=== PATIENT | female | born 1985 | race African-American/Black ===

== ENCOUNTER 2016-11-18 14:28 | Emergency (ER) | payer BC, OTHER ==
[2016-11-18] MEDS ORDERED: ONDANSETRON 4 MG/2 ML VIAL IVP STA (14:44)
[2016-11-18] MEDS ORDERED: SODIUM CHLORIDE 0.9% 1,000 ML IV ONE (14:44)
[2016-11-18] MEDS ORDERED: DICYCLOMINE 10 MG/ML 2 ML AMP IM STA (14:44)
[2016-11-18] MEDS ORDERED: SODIUM CHLORIDE 0.9% 1,000 ML IV SCH (14:45)
[2016-11-18] MEDS ORDERED: KETOROLAC 30 MG/ML 1 ML VIAL IVP STA (14:51)
[2016-11-18 15:12] LABS: Basophils # (A) 0.1 k/uL (0-0.2); Basophils % (A) 1 %; CH 29.7; CHCM 34.3; Eosinophils # (A) 0.1 k/uL (0-0.7); Eosinophils % (A) 3 %; HCT 39.6 % (34.0-46.0); HDW 2.47; Luc # (Auto) 0.09; Luc % (Auto) 2; Lymphocytes # (A) 0.6 k/uL (1.0-4.8); Lymphocytes % (A) 13 %; MCH 30.7 pg (25.0-35.0); MCHC 35.3 g/dL (31.0-37.0); Mean Platelet Volume 6.9; Monocytes # (A) 0.3 k/uL (0-1.0); Monocytes % (A) 7 %; Neutrophils # (A) 3.2 k/uL (1.3-7.7); Neutrophils % (A) 74 %; RBC 4.55 m/uL (3.80-5.40); RDW 13.6 % (11.5-15.5); WBC 4.4 k/uL (3.8-10.6); WBC (Perox) 4.07
[2016-11-18 15:21] LABS: ALT 16 U/L (9-52); AST 21 U/L (14-36); Alkaline Phosphatase 87 U/L (38-126); Anion Gap 12 mmol/L; Blood Urea Nitrogen 8 mg/dL (7-17); Calcium 9.5 mg/dL (8.4-10.2); Carbon Dioxide 22 mmol/L (22-30); Chloride 107 mmol/L (98-107); Glucose 97 mg/dL (74-99); Non-African American GFR(MDRD) >60 (>60 ml/min/1.73 sqM); Potassium 4.4 mmol/L (3.5-5.1); Sodium 141 mmol/L (137-145); Total Protein 8.3 g/dL (6.3-8.2)
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
[2016-11-18] MEDS ORDERED: ACETAMINOPHEN TAB 500 MG TAB PO STA (16:14)
[2016-11-18 16:23] LABS: Appearance,Urine Clear (Clear); Bilirubin,Urine Negative (Negative); Glucose,Urine (UA) Negative (Negative); Ketones,Urine Negative (Negative); Leukocyte Esterase,Urine Negative (Negative); Nitrite,Urine Negative (Negative); PH, Urine 6.5 (5.0-8.0); Protein,Urine Negative (Negative); Specific Gravity,Urine 1.015 (1.001-1.035); UA Billing (MACRO vs. MICRO) CHEM; Urobilinogen,Urine <2.0 mg/dL (<2.0)
--- NOTE | 2016-11-18 16:40 | XR ---
EXAMINATION TYPE: XR chest 1V portable DATE OF EXAM: 11/18/2016 4:34 PM COMPARISON: Chest x-ray December 10, 2014. HISTORY: Chest pain per order. Cough per patient. TECHNIQUE: Single AP portable frontal upright view of the chest is obtained. FINDINGS: There is no focal air space opacity, pleural effusion, or pneumothorax seen. The cardiac silhouette size is within normal limits. The osseous structures are intact. IMPRESSION: No acute process. No significant change from prior.
[2016-11-18 17:05] VITALS: BP 154/72; PULSE 68; RESP 18; TEMP 96.9
[2016-11-18] MEDS ORDERED: KETOROLAC 30 MG/ML 1 ML VIAL IVP SCH (22:00)
== END 2016-11-18 17:08 | disposition home or self-care (01) ==
LOC: EC 14:28
DX: B34.9 Viral infection, unspecified (principal); E86.0 Dehydration; F17.200 Nicotine dependence, unspecified, uncomplicated; Z88.2 Allergy status to sulfonamides
CPT/HCPCS: 99284; 96374; 96375; 96372; 96361 ×2; 36415; 80053; 85025; 81003; 81025; 87502; 71010; J0500; J2405; J1885

== ENCOUNTER 2016-12-21 08:19 | Day surgery (SDC) | payer OTHER ==
[2016-12-16 14:11] VITALS: BMI 31.1
[~2016-12-21 08:19] MED LIST: DEXAMETHASONE SOD PHOSPHATE 10 MG/ML 1 ML VIAL IV ONE; HEPARIN SODIUM,PORCINE 5,000 UNIT/ML 1 ML VIAL SQ ONE; HYDROmorphone 1 MG/ML 1 ML SYRINGE IVP PRN; LACTATED RINGERS 1,000 ML IV SCH; MIDAZOLAM 2 MG/2 ML VIAL IV PRN; ONDANSETRON 4 MG/2 ML VIAL IVP ONE; Pre Op ABX Message 1 EACH MISC MISCELLANE ONE
[2016-12-21] MEDS ORDERED: LIDOCAINE 1% 20 ML VIAL (10MG/ML) FOR IV START INTRADERMA ONE (08:51)
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
[2016-12-21] MEDS ORDERED: MIDAZOLAM 2 MG/2 ML VIAL ONE (09:32)
[2016-12-21] MEDS ORDERED: fentaNYL (PF) 50 MCG/ML 2 ML AMP ONE (09:32)
[2016-12-21] MEDS ORDERED: LIDOCAINE 1% INJ 10MG/ML (20 ML MDV) ONE (09:32)
[2016-12-21] MEDS ORDERED: HYDROmorphone (PF) 1 MG/ML ONE (09:32)
[2016-12-21] MEDS ORDERED: PROPOFOL 10 MG/ML 20 ML VIAL IV ONE (09:32)
[2016-12-21] MEDS ORDERED: KETAMINE 10 MG/ML 20 ML VIAL ONE (09:32)
[2016-12-21] MEDS ORDERED: BUPIVACAIN-EPI 0.25%-1:200,000 30 ML VIAL SQ ONE ×2 (09:33→10:29)
--- NOTE | 2016-12-21 10:41 | P.OP ---
Date of Procedure: 12/21/16 Preoperative Diagnosis: Left axillary hidradenitis Postoperative Diagnosis: Left axillary hidradenitis Procedure(s) Performed: Excision of left axillary hidradenitis Anesthesia: EJ Surgeon: Jose Schneider Estimated Blood Loss (ml): 5 Pathology: other (Left axillary hidradenitis) Condition: stable Disposition: PACU Description of Procedure: Patient's placed on the operative table in the supine position. She received general anesthesia. Her left axilla was prepped and draped usual sterile fashion. The left axillary skin was quite inflamed there is evidence of several chronic draining sinuses. An elliptical skin incision was made around the left axillary hidradenitis and then using the cautery subcu tissue divided. In the specimen was removed. Several small bleeding points were coagulated. At this point a 19-Sy[place] channel drain was placed into the sella and brought through separate stab incision the skin was closed in 2 layers. A deep dermal layer was closed using 3-0 Vicryl suture and then a running 3-0 Monocryl suture was performed to close the skin. Dermabond dressings was applied. Patient tolerated procedure well and was sent to recovery room stable condition.
[2016-12-21] MEDS: MEPERIDINE 50 MG/ML SYRINGE IVP ONE ×2 (10:45→10:50)
[2016-12-21 10:52] VITALS: RESP 18; TEMP 97.4
[2016-12-21] MEDS ORDERED: HYDROcodone/APAP 7.5-325MG 1 EACH TAB PO ONE (11:50)
[2016-12-21] MEDS ORDERED: PROMETHAZINE INJ 25 MG/ML 1 ML VIAL IVPB ONE (12:46)
[2016-12-21 13:09] VITALS: BP 132/75; PULSE 51
== END 2016-12-21 13:39 | disposition home or self-care (01) ==
LOC: OR 08:19
PROVIDERS: ATTEND Surgery
DX: L73.2 Hidradenitis suppurativa (principal); F17.200 Nicotine dependence, unspecified, uncomplicated; Z79.2 Long term (current) use of antibiotics; Z79.3 Long term (current) use of hormonal contraceptives; Z79.899 Other long term (current) drug therapy; Z88.2 Allergy status to sulfonamides
CPT/HCPCS: 81025; 88304; 87070; 87205; 87075; 11450; J2250; J1644; J1100; J2550; J2175; J2405; J2001; J3010; J1170; J2704

== ENCOUNTER 2016-12-25 23:55 | Emergency (ER) | payer OTHER ==
[2016-12-26 00:13] VITALS: BP 156/89; PULSE 83; RESP 20; TEMP 98.7
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
== END 2016-12-26 00:52 | disposition home or self-care (01) ==
LOC: EC 23:55
DX: Z48.03 Encounter for change or removal of drains (principal); Z43.8 Encounter for attention to other artificial openings; Z88.2 Allergy status to sulfonamides
CPT/HCPCS: 99283

== ENCOUNTER 2017-01-17 17:06 | Emergency (ER) | payer OTHER ==
[2017-01-17] MEDS ORDERED: KETOROLAC 30 MG/ML 1 ML VIAL IVP STA (17:27)
[2017-01-17] MEDS ORDERED: SODIUM CHLORIDE 0.9% 1,000 ML IV ONE (17:27)
[2017-01-17] MEDS ORDERED: MECLIZINE 12.5 MG TAB PO STA (17:27)
[2017-01-17] MEDS ORDERED: diphenhydrAMINE 50 MG/ML 1 ML VIAL IVP STA (17:27)
[2017-01-17] MEDS ORDERED: METOCLOPRAMIDE 5 MG/ML 2 ML VIAL IVP STA (17:27)
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
[2017-01-17 17:44] LABS: Basophils # (A) 0.1 k/uL (0-0.2); Basophils % (A) 1 %; CH 29.5; CHCM 32.9; Eosinophils # (A) 0.2 k/uL (0-0.7); Eosinophils % (A) 4 %; HCT 41.3 % (34.0-46.0); HDW 2.39; HGB 13.4 gm/dL (11.4-16.0); Luc # (Auto) 0.19; Luc % (Auto) 3; Lymphocytes # (A) 2.7 k/uL (1.0-4.8); Lymphocytes % (A) 45 %; MCH 29.2 pg (25.0-35.0); MCHC 32.5 g/dL (31.0-37.0); Mean Platelet Volume 6.1; Monocytes # (A) 0.3 k/uL (0-1.0); Monocytes % (A) 5 %; Neutrophils # (A) 2.4 k/uL (1.3-7.7); Neutrophils % (A) 41 %; RBC 4.59 m/uL (3.80-5.40); RDW 13.9 % (11.5-15.5); WBC 5.9 k/uL (3.8-10.6); WBC (Perox) 5.97
[2017-01-17 17:55] LABS: ALT 20 U/L (9-52); AST 17 U/L (14-36); Alkaline Phosphatase 93 U/L (38-126); Anion Gap 10 mmol/L; Blood Urea Nitrogen 7 mg/dL (7-17); Calcium 9.5 mg/dL (8.4-10.2); Carbon Dioxide 21 mmol/L (22-30); Chloride 109 mmol/L (98-107); Glucose 91 mg/dL (74-99); Non-African American GFR(MDRD) >60 (>60 ml/min/1.73 sqM); Sodium 140 mmol/L (137-145); Total Bilirubin 0.9 mg/dL (0.2-1.3); Total Protein 8.1 g/dL (6.3-8.2)
[2017-01-17 18:07] LABS: Appearance,Urine Clear (Clear); Bacteria,Urine Rare /hpf; Bilirubin,Urine Negative (Negative); Glucose,Urine (UA) Negative (Negative); Ketones,Urine Negative (Negative); Leukocyte Esterase,Urine Trace (Negative); Nitrite,Urine Negative (Negative); PH, Urine 6.5 (5.0-8.0); Particle Count 2477; Protein,Urine Negative (Negative); RBC,Urine <1 /hpf (0-5); Specific Gravity,Urine 1.012 (1.001-1.035); Squamous Epithelial Cell,Urine 2 /hpf (0-4); UA Billing (MACRO vs. MICRO) MICRO; Urobilinogen,Urine <2.0 mg/dL (<2.0); WBC,Urine 2 /hpf (0-5)
[2017-01-17 19:10] VITALS: BP 131/77; PULSE 77; RESP 18; TEMP 98.4
== END 2017-01-17 19:10 | disposition home or self-care (01) ==
LOC: EC 17:06
DX: R42 Dizziness and giddiness (principal); R51 Headache; F17.200 Nicotine dependence, unspecified, uncomplicated; Z88.2 Allergy status to sulfonamides
CPT/HCPCS: 36415; 93005; 80053; 85025; 81001; 81025; 99284; 96374; 96375 ×2; 96361; J1200; J2765; J1885

== ENCOUNTER → 2017-04-21 | Outpatient (CLI) | payer OTHER ==
--- NOTE | 2017-04-21 10:41 | MM ---
Reason for exam: clinical finding. Last mammogram was performed 4 years and 1 month ago. History: Patient is nulliparous. Family history of breast cancer in paternal grandmother. Taking hormonal contraceptives for 2 years beginning at age 25. Indicated problem(s): palpable abnormality in the right breast. Physical Findings: Nurse Summary: 1 x 1.5cm nodule in the right breast at 9 o'clock (nurse ts). MG Diagnostic Mammo w CAD LARA Bilateral CC and MLO view(s) were taken. ML, spot compression MLO, and spot compression CC view(s) were taken of the left breast. Prior study comparison: March 22, 2013, CAD bilateral diagnostic mammogram. The breast tissue is heterogeneously dense. This may lower the sensitivity of mammography. Finding: There are typically benign round calcifications in both breasts. Developing asymmetry left anterior upper aspect does not completely go away on additional views. These results were verbally communicated with the patient and result sheet given to the patient on 04/21/17. ASSESSMENT: Incomplete: need additional imaging evaluation, BI-RAD 0 RECOMMENDATION: Ultrasound of the left breast.
--- NOTE | 2017-04-21 10:46 | USB ---
Reason for exam: additional evaluation requested from abnormal screening. History: Patient is nulliparous. Family history of breast cancer in paternal grandmother. Taking hormonal contraceptives for 2 years beginning at age 25. US Breast Limited BILAT Right breast ultrasound includes all four quadrants, the retroareolar region and axilla. Finding demonstrates a 24 x 12 x 18mm irregular, solid, hypoechoic, vascular lesion at 8 o'clock at nipple at BB. Left breast ultrasound is negative. These results were verbally communicated with the patient and result sheet given to the patient on 04/21/17. ASSESSMENT: Suspicious, BI-RAD 4 RECOMMENDATION: Ultrasound core biopsy of the right breast. Called Dr. Nettles with mammographic findings and has scheduled an appointment for the patient for 04/21/17 at 1:[address] Schneider. PRELIMINARY REPORT CALLED AND FAXED TO DR. SCHNEIDER ON 04/21/17 /TMP.
== END ==
LOC: RADMAMWWP 08:26
PROVIDERS: ATTEND Family Medicine
DX: N63 Unspecified lump in breast (principal)
CPT/HCPCS: 76642; G0204

== ENCOUNTER → 2017-05-11 | Day surgery (SDC) | payer OTHER ==
[2017-05-11 11:51] VITALS: RESP 16; TEMP 98.9; BMI 28.5
[2017-05-11 14:33] VITALS: BP 143/86; PULSE 78
--- NOTE | 2017-05-11 14:41 | USB ---
EXAMINATION TYPE: US breast aspiration single RT DATE OF EXAM: 05/11/2017 CLINICAL HISTORY: 31-year-old female with N63 Breast mass. Painful periareolar palpable abnormality. Patient with history of hidradenitis suppurativa. TECHNIQUE: Ultrasound guided right breast aspiration. COMPARISON: 04/21/2017 FINDINGS: The procedure of ultrasound guided core biopsy was explained to the patient. Benefits, alternatives, and risks were discussed. An informed consent was then obtained. Ultrasound-guided core needle biopsy was initially planned for the 8:00 periareolar mass. The patient was placed in supine positioning for imaging and for the procedure. The overlying skin was prepped and draped in usual sterile fashion. Lidocaine was used as anesthetic into the skin and subcutaneous tissue up to area of concern in the right breast. As the anesthetic needle approached the target lesion, the patient experienced significant pain and discomfort. Close examination of the lesion shows possible tract extending to the overlying skin surface. This raises the possibility of a sebaceous or epidermal inclusion cyst possibly with superinfection due to the degree of pain. Aspiration was subsequently performed. Under ultrasound guidance, an 18-gauge spinal needle was advanced into the center of the lesion and aspiration yielded only 1.5 mL of mixed bloody and purulent fluid. The lesion only slightly decreased in size and remained painful despite generous local anesthesia. Overall, the patient tolerated the procedure well without any immediate complication. The patient was kept in the radiology department for short stay after the procedure and then discharged home in stable condition. IMPRESSION: Successful, uncomplicated ultrasound guided aspiration of very painful 8:00 right periareolar lesion. An infected cyst, possible sebaceous cyst is suspected. Mixed bloody and purulent fluid was submitted for cytology and microbiology. Initially planned ultrasound-guided core needle biopsy was not performed. Pathology Results: Benign BREAST, RIGHT, ASPIRATE: DEGENERATED ACUTE AND CHRONIC INFLAMMATORY CELLS, MACROPHAGES AND INFLAMED GRANULATION TISSUE. FEATURES SUGGESTIVE OF RUPTURED CYST VERSUS ABSCESS. NO CYTOLOGICALLY MALIGNANT CELLS IDENTIFIED. Recommendation 1. Clinical management. Possible surgical management if symptoms persist despite conservative treatment. 2. A 3 month followup ultrasound is recommended to reassess this area. MTDD
== END | disposition home or self-care (01) ==
LOC: RADUSWWP 11:11
PROVIDERS: ATTEND Surgery
DX: R92.8 Other abnormal and inconclusive findings on diagnostic imaging of breast (principal); N63 Unspecified lump in breast
CPT/HCPCS: 76942; 88173; 88305

== ENCOUNTER 2017-05-27 14:05 | Emergency (ER) | payer OTHER ==
[2017-05-27 14:20] VITALS: BP 140/86; PULSE 74; RESP 18; TEMP 98.7
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
--- NOTE | 2017-05-27 14:47 | XR ---
EXAMINATION TYPE: XR chest 2V DATE OF EXAM: 05/27/2017 COMPARISON: 11/18/2016 TECHNIQUE: PA and lateral views submitted. HISTORY: Pain and cough FINDINGS: The lungs are clear and there is no pneumothorax, pleural effusion, or focal pneumonia. IMPRESSION: 1. No acute process.
== END 2017-05-27 15:05 | disposition home or self-care (01) ==
LOC: EC 14:05
DX: J40 Bronchitis, not specified as acute or chronic (principal); H60.92 Unspecified otitis externa, left ear; R21 Rash and other nonspecific skin eruption; L29.9 Pruritus, unspecified; F17.200 Nicotine dependence, unspecified, uncomplicated; Z79.899 Other long term (current) drug therapy; Z88.2 Allergy status to sulfonamides
CPT/HCPCS: 71020; 99284

== ENCOUNTER 2017-06-09 05:03 | Emergency (ER) | payer OTHER ==
[2017-06-09 05:10] VITALS: BP 167/93; PULSE 83; RESP 18; TEMP 98.2
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
== END 2017-06-09 06:50 | disposition home or self-care (01) ==
LOC: EC 05:03
DX: L73.2 Hidradenitis suppurativa (principal); F17.200 Nicotine dependence, unspecified, uncomplicated; Z88.2 Allergy status to sulfonamides; Z79.899 Other long term (current) drug therapy
CPT/HCPCS: 10060; 99282

== ENCOUNTER → 2017-06-14 | Outpatient (CLI) | payer OTHER ==
--- NOTE | 2017-06-14 11:19 | USB ---
Reason for exam: clinical finding. History: Patient is nulliparous. Family history of breast cancer in paternal grandmother. Benign US breast aspiration single RT of the right breast, May 11, 2017. Taking hormonal contraceptives for 2 years beginning at age 25. Physical Findings: Nurse did not find any significant physical abnormalities on exam. US Breast RT Right breast ultrasound includes all four quadrants, the retroareolar region and axilla. Finding demonstrates a 1.8 x 1.0 x 1.5cm oval, mixed, hypoechoic, vascular lesion at the posterior nipple at palpable, seen on previous. Complex collection is stable. Infected component not excluded. These results were verbally communicated with the patient and result sheet given to the patient on 06/14/17. ASSESSMENT: Benign, BI-RAD 2 RECOMMENDATION: Surgical consultation of the right breast. Manage patient on a clinical basis. Patient states she is following up with PCP. Ultrasound of the right breast in 5 months.
== END | disposition home or self-care (01) ==
LOC: RADUSWWP 08:19
PROVIDERS: ATTEND Family Medicine
DX: N63 Unspecified lump in breast (principal)

== ENCOUNTER → 2017-06-14 | Outpatient (CLI) | payer OTHER ==
--- NOTE | 2017-06-14 11:12 | MR ---
EXAMINATION TYPE: MR brain and iac wo con DATE OF EXAM: 06/14/2017 COMPARISON: NONE HISTORY: Ear infections CONTRAST: A she refused IV contrast. TECHNIQUE: T1-weighted sagittal, diffusion, T2, and FLAIR axial views of the brain are submitted. The high-reso lution T2 axial and noncontrast T1 axial and coronal views of the IACs are submitted. FINDINGS: Exam assessment for enhancing cerebellopontine angle mass limited by the patient's refusal of IV cont rast. Grossly no cerebellopontine angle mass seen by noncontrast technique. There is evidence of mode rate left mastoiditis. Diffusion imaging demonstrates no diagnostic evidence of acute ischemia. Changes of chronic sinusitis noted. White matter: Approximately 40 areas of abnormal signal white matter. No lesions perpendicular to sys tem. No callosal lesions. Largest measures 8 mm within the right frontal white matter. No midline shift. No mass effect. Suggestion of slight area of nodularity involving the anterior comm unicating artery. IMPRESSION: 1. Patient refused IV contrast limits assessment for cerebellopontine angle mass. Grossly no mass tabitha ntified. 2. Left mastoiditis. 3. Nonspecific white matter findings. Differential diagnosis would include demyelinating process, rem ote microvascular ischemia, hypertension, vasculitis or migraine headaches. 4. Slightly nodular pattern to the anterior to indicating artery. Consider follow-up MRA [place]. 5. Mild chronic sinusitis.
== END | disposition home or self-care (01) ==
LOC: RADMRIMAIN 09:22
PROVIDERS: ATTEND Family Medicine
DX: H70.92 Unspecified mastoiditis, left ear (principal); J32.9 Chronic sinusitis, unspecified; R93.0 Abnormal findings on diagnostic imaging of skull and head, not elsewhere classified
CPT/HCPCS: 70551

== ENCOUNTER 2017-07-08 07:46 | Day surgery (SDC) | payer OTHER ==
[2017-07-07 08:53] VITALS: BMI 33.9
[~2017-07-08 07:46] MED LIST changes: -HYDROmorphone 1 MG/ML 1 ML SYRINGE IVP PRN; -ONDANSETRON 4 MG/2 ML VIAL IVP ONE; +SCOPOLAMINE 1.5MG/72HR PATCH TRANSDERM ONE
[2017-07-08] MEDS ORDERED: LACTATED RINGERS 1,000 ML IV ONE (08:07)
[2017-07-08] MEDS: ONDANSETRON 4 MG/2 ML VIAL IVP ONE ×2 (08:13→12:56)
[2017-07-08] MEDS ORDERED: LIDOCAINE 1% 20 ML VIAL (10MG/ML) FOR IV START INTRADERMA ONE (08:14)
[2017-07-08] MEDS ORDERED: SUCCINYLCHOLINE CHLORIDE VIAL 200 MG/10 ML VIAL IV ONE (11:42)
[2017-07-08] MEDS ORDERED: MIDAZOLAM 2 MG/2 ML VIAL ONE (11:42)
[2017-07-08] MEDS ORDERED: SODIUM CHLORIDE 0.9% 50 ML with ceFAZolin 2,000 MG IV ONE ×2 (11:42)
[2017-07-08] MEDS ORDERED: PROPOFOL 10 MG/ML 20 ML VIAL IV ONE (11:42)
[2017-07-08] MEDS ORDERED: fentaNYL (PF) 50 MCG/ML 2 ML AMP ONE (11:42)
[2017-07-08] MEDS ORDERED: LIDOCAINE 1% INJ 10MG/ML (20 ML MDV) ONE (11:42)
[2017-07-08] MEDS ORDERED: BUPIVACAIN-EPI 0.5%-1:200,000 30 ML VIAL SQ ONE (12:08)
--- NOTE | 2017-07-08 12:25 | P.OP ---
Date of Procedure: 07/08/17 Preoperative Diagnosis: Right breast abscess Postoperative Diagnosis: Same Procedure(s) Performed: Incision and drainage of right breast abscess Anesthesia: EJ, local Surgeon: Shi Leigh Pathology: other Condition: stable Disposition: PACU Indications for Procedure: 31 yrs old female with right breast absces Operative Findings: Right breast abscess, periareolar area Description of Procedure: The patient was brought to the operating room and placed in supine position. Gen. anesthesia with endotracheal intubation was performed as per anesthesia team. Chlorhexidine was used to prep the skin followed by application of sterile drapes. A 3 cm circumareolar incision was made along the right breast at 9:00. This was deepened to the subcu tissue until 10 mL of leelee pus was drained. All the loculi were broken. Final post-debridement measurement 3 x 2 x 2 cm. Hemostasis was checked. The cavity was irrigated with half-strength hydrogen peroxide. Packing performed with iodoform. The sponge, instrument and needle count were correct 2.
[2017-07-08 12:28] VITALS: TEMP 96.8
[2017-07-08 12:36] VITALS: RESP 16
[2017-07-08] MEDS: HYDROmorphone 0.5 MG/0.5 ML SYRINGE IVP PRN ×4 (12:50→13:10)
[2017-07-08] MEDS ORDERED: HYDROcodone/APAP 5-325MG 1 EACH TAB PO ONE (13:45)
[2017-07-08] MEDS ORDERED: METOCLOPRAMIDE 5 MG/ML 2 ML VIAL IVP ONE (13:54)
[2017-07-08 14:06] VITALS: BP 138/88; PULSE 67
[2017-07-08] MEDS ORDERED: PROMETHAZINE INJ 25 MG/ML 1 ML VIAL IVPB ONE (14:12)
== END 2017-07-08 15:45 | disposition home health service (06) ==
LOC: OR 07:46
PROVIDERS: ATTEND Surgery
DX: N61.1 Abscess of the breast and nipple (principal); F17.200 Nicotine dependence, unspecified, uncomplicated; K21.9 Gastro-esophageal reflux disease without esophagitis; Z88.2 Allergy status to sulfonamides; Z79.899 Other long term (current) drug therapy
CPT/HCPCS: 19020; 81025; 87070; 87205; 87075; J2250; J0330; J1644; J1100; J2550; J2765; J2405; J2001; J3010; J0690; J2704; J1170

== ENCOUNTER 2017-09-12 10:59 | Emergency (ER) | payer OTHER ==
[2017-09-12 11:08] VITALS: RESP 18
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
[2017-09-12 12:06] LABS: Basophils # (A) 0.1 k/uL (0-0.2); Basophils % (A) 1 %; CHCM 33.1; Eosinophils # (A) 0.3 k/uL (0-0.7); Eosinophils % (A) 4 %; HCT 42.3 % (34.0-46.0); HDW 2.33; Luc # (Auto) 0.09; Luc % (Auto) 2; Lymphocytes # (A) 1.9 k/uL (1.0-4.8); Lymphocytes % (A) 32 %; MCH 29.1 pg (25.0-35.0); Mean Platelet Volume 6.7; Monocytes # (A) 0.4 k/uL (0-1.0); Monocytes % (A) 7 %; Neutrophils # (A) 3.2 k/uL (1.3-7.7); Neutrophils % (A) 54 %; RDW 14.9 % (11.5-15.5); WBC (Perox) 5.88
[2017-09-12 12:16] LABS: Appearance,Urine Clear (Clear); Bilirubin,Urine Negative (Negative); Glucose,Urine (UA) Negative (Negative); Ketones,Urine Negative (Negative); Leukocyte Esterase,Urine Negative (Negative); Nitrite,Urine Negative (Negative); Protein,Urine Negative (Negative); Specific Gravity,Urine 1.003 (1.001-1.035); UA Billing (MACRO vs. MICRO) CHEM; Urobilinogen,Urine <2.0 mg/dL (<2.0)
[2017-09-12 12:51] LABS: ALT 25 U/L (9-52); AST 22 U/L (14-36); Alkaline Phosphatase 95 U/L (38-126); Anion Gap 14 mmol/L; Blood Urea Nitrogen 7 mg/dL (7-17); Calcium 10.5 mg/dL (8.4-10.2); Carbon Dioxide 23 mmol/L (22-30); Chloride 108 mmol/L (98-107); Glucose 121 mg/dL (74-99); Non-African American GFR(MDRD) >60 (>60 ml/min/1.73 sqM); Sodium 145 mmol/L (137-145); Total Bilirubin 0.6 mg/dL (0.2-1.3); Total Protein 8.8 g/dL (6.3-8.2)
[2017-09-12 12:58] LABS: Amylase 112 U/L (30-110)
[2017-09-12 13:23] VITALS: BP 130/72; PULSE 68; TEMP 98.4
== END 2017-09-12 13:23 | disposition home or self-care (01) ==
LOC: EC 10:59
DX: N93.8 Other specified abnormal uterine and vaginal bleeding (principal); R10.30 Lower abdominal pain, unspecified; R74.8 Abnormal levels of other serum enzymes; F17.200 Nicotine dependence, unspecified, uncomplicated; Z79.899 Other long term (current) drug therapy; Z88.2 Allergy status to sulfonamides
CPT/HCPCS: 36415; 80053; 81003; 81025; 82150; 83690; 85025; 99283

== ENCOUNTER 2017-12-04 08:33 | Emergency (ER) | payer OTHER ==
[2017-12-04 08:46] VITALS: BP 132/95; PULSE 98; RESP 18; TEMP 98.4
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
== END 2017-12-04 09:30 | disposition home or self-care (01) ==
LOC: EC 08:33
DX: L02.415 Cutaneous abscess of right lower limb (principal); F17.200 Nicotine dependence, unspecified, uncomplicated; Z79.899 Other long term (current) drug therapy; Z88.2 Allergy status to sulfonamides
CPT/HCPCS: 99282

== ENCOUNTER 2017-12-23 19:15 | Emergency (ER) | payer OTHER ==
[2017-12-23 19:26] VITALS: RESP 16
[2017-12-23] MEDS ORDERED: SODIUM CHLORIDE 0.9% 500 ML IV ONE (19:53)
[2017-12-23] MEDS ORDERED: KETOROLAC 30 MG/ML 1 ML VIAL IVP STA (19:53)
[2017-12-23] MEDS ORDERED: methylPREDNISolone SOD SUCCI 125 MG/2 ML VIAL IV STA (19:53)
[2017-12-23] MEDS ORDERED: amLODIPine 5 MG TAB PO STA (19:54)
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
[2017-12-23 20:51] LABS: Basophils % (A) 0 %; Eosinophils # (A) 0.3 k/uL (0-0.7); Eosinophils % (A) 3 %; HCT 41.2 % (34.0-46.0); HGB 13.7 gm/dL (11.4-16.0); Lymphocytes # (A) 3.7 k/uL (1.0-4.8); Lymphocytes % (A) 41 %; MCH 28.2 pg (25.0-35.0); MCHC 33.3 g/dL (31.0-37.0); MCV 84.7 fL (80.0-100.0); Mean Platelet Volume 6.5; Monocytes # (A) 0.6 k/uL (0-1.0); Monocytes % (A) 6 %; Neutrophils # (A) 4.3 k/uL (1.3-7.7); Neutrophils % (A) 48 %; Platelet Count 349 k/uL (150-450); RBC 4.86 m/uL (3.80-5.40); WBC 9.1 k/uL (3.8-10.6)
[2017-12-23 21:02] LABS: ALT 15 U/L (9-52); AST 19 U/L (14-36); Albumin 4.3 g/dL (3.5-5.0); Alkaline Phosphatase 122 U/L (38-126); Anion Gap 16 mmol/L; Blood Urea Nitrogen 8 mg/dL (7-17); Calcium 9.9 mg/dL (8.4-10.2); Carbon Dioxide 20 mmol/L (22-30); Chloride 108 mmol/L (98-107); Glucose 89 mg/dL (74-99); Potassium 4.3 mmol/L (3.5-5.1); Sodium 144 mmol/L (137-145); Total Bilirubin 0.7 mg/dL (0.2-1.3); Total Protein 8.3 g/dL (6.3-8.2)
--- NOTE | 2017-12-23 21:14 | XR ---
EXAMINATION TYPE: XR chest 2V DATE OF EXAM: 12/23/2017 COMPARISON: 05/27/2017 HISTORY: Chest pain TECHNIQUE: Frontal and lateral views of the chest are obtained. FINDINGS: Heart and mediastinum are normal. Lungs are clear. Diaphragm is normal. Bony thorax appear s normal. IMPRESSION: Normal chest. No change.
[2017-12-23] MEDS ORDERED: ACETAMINOPHEN TAB 500 MG TAB PO STA (22:21)
[2017-12-23 22:29] VITALS: BP 148/93; PULSE 67; TEMP 97.6
== END 2017-12-23 22:29 | disposition home or self-care (01) ==
LOC: EC 19:15
DX: S40.861A Insect bite (nonvenomous) of right upper arm, initial encounter (principal); I10 Essential (primary) hypertension; R51 Headache; F17.200 Nicotine dependence, unspecified, uncomplicated; Z79.899 Other long term (current) drug therapy; Z88.2 Allergy status to sulfonamides; Z53.29 Procedure and treatment not carried out because of patient's decision for other reasons; W57.XXXA Bitten or stung by nonvenomous insect and other nonvenomous arthropods, initial encounter
CPT/HCPCS: 36415; 93005; 80053; 85025; 71046; 99284; 96374; 96375; 96361; J2930; J1885

== ENCOUNTER 2017-12-28 18:50 | Emergency (ER) | payer OTHER ==
[2017-12-28 18:55] VITALS: RESP 18
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
[2017-12-28 20:52] LABS: Basophils % (A) 0 %; Eosinophils # (A) 0.3 k/uL (0-0.7); Eosinophils % (A) 3 %; HGB 13.2 gm/dL (11.4-16.0); Lymphocytes # (A) 3.3 k/uL (1.0-4.8); Lymphocytes % (A) 37 %; MCH 28.6 pg (25.0-35.0); MCHC 33.8 g/dL (31.0-37.0); MCV 84.6 fL (80.0-100.0); Mean Platelet Volume 6.4; Monocytes # (A) 0.5 k/uL (0-1.0); Monocytes % (A) 5 %; Neutrophils # (A) 4.7 k/uL (1.3-7.7); Neutrophils % (A) 52 %; Platelet Count 326 k/uL (150-450); RBC 4.61 m/uL (3.80-5.40)
[2017-12-28 21:07] LABS: ALT 13 U/L (9-52); AST 13 U/L (14-36); Albumin 4.1 g/dL (3.5-5.0); Alkaline Phosphatase 98 U/L (38-126); Anion Gap 13 mmol/L; Blood Urea Nitrogen 10 mg/dL (7-17); Calcium 9.8 mg/dL (8.4-10.2); Carbon Dioxide 24 mmol/L (22-30); Chloride 107 mmol/L (98-107); Glucose 100 mg/dL (74-99); Potassium 3.8 mmol/L (3.5-5.1); Sodium 144 mmol/L (137-145); Total Bilirubin 0.5 mg/dL (0.2-1.3); Total Protein 7.9 g/dL (6.3-8.2)
[2017-12-28] MEDS ORDERED: CLINDAMYCIN 150 MG CAP PO STA (21:21)
[2017-12-28 21:37] VITALS: BP 165/89; PULSE 78; TEMP 98.7
--- NOTE | 2017-12-30 04:36 | CDI ---
Documentation Clarification OP Dear Gisele ELIZABETH, PAC, Please do addendum to ED report that describes the I&D complete procedure. Thank you, Mee English Cover Inspector If you have any question, Please contact coding clerks supervisor at [phone] [facility]
== END 2017-12-28 21:38 | disposition home or self-care (01) ==
LOC: EC 18:50
DX: L02.413 Cutaneous abscess of right upper limb (principal); L03.113 Cellulitis of right upper limb; F17.200 Nicotine dependence, unspecified, uncomplicated; Z79.899 Other long term (current) drug therapy; Z88.2 Allergy status to sulfonamides
CPT/HCPCS: 10060; 36415; 80053; 85025; 99283

== ENCOUNTER 2018-02-25 19:42 | Emergency (ER) | payer OTHER ==
[2018-02-25 20:26] LABS: Appearance,Urine Clear (Clear); Bacteria,Urine Rare /hpf; Bilirubin,Urine Negative (Negative); Blood,Urine Negative (Negative); Color,Urine Yellow; Glucose,Urine (UA) Negative (Negative); Ketones,Urine Negative (Negative); Leukocyte Esterase,Urine Trace (Negative); Mucus,Urine Rare /hpf; Nitrite,Urine Negative (Negative); Protein,Urine Negative (Negative); Specific Gravity,Urine 1.017 (1.001-1.035); Squamous Epithelial Cell,Urine 4 /hpf (0-4); Urobilinogen,Urine <2.0 mg/dL (<2.0); WBC,Urine 3 /hpf (0-5)
[2018-02-25] MEDS ORDERED: FLUCONAZOLE 150 MG TAB PO STA (20:54)
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
[2018-02-25 21:17] VITALS: BP 128/82; PULSE 80; RESP 18; TEMP 97.6
[2018-02-28 15:13] LABS: C. trachomatis,PCR Negative (Neg,Equiv); Chlamydia trachomatis Source Cervix
[2018-02-28 15:17] LABS: N. gonorrhoeae,PCR Negative (Neg,Equiv); Neisseria Source Cervix
== END 2018-02-25 21:17 | disposition home or self-care (01) ==
LOC: EC 19:42
DX: B37.3 Candidiasis of vulva and vagina (principal); Z76.0 Encounter for issue of repeat prescription; Z32.02 Encounter for pregnancy test, result negative; F17.200 Nicotine dependence, unspecified, uncomplicated; Z88.2 Allergy status to sulfonamides; Z79.899 Other long term (current) drug therapy
CPT/HCPCS: 81001; 81025; 87070; 87086; 87205; 87491; 87591; 87808; 99283

== ENCOUNTER 2018-06-13 09:49 | Emergency (ER) | payer OTHER ==
[2018-06-13 10:11] VITALS: TEMP 98.8
[2018-06-13] MEDS ORDERED: LIDOCAINE 1% INJ 10MG/ML (20 ML MDV) SQ ONE (10:19)
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
[2018-06-13] MEDS ORDERED: KETOROLAC 30 MG/ML 1 ML VIAL IM STA (10:56)
[2018-06-13 11:18] VITALS: BP 142/82; PULSE 78; RESP 18
== END 2018-06-13 11:28 | disposition home or self-care (01) ==
LOC: EC 09:49
DX: L05.01 Pilonidal cyst with abscess (principal); F17.200 Nicotine dependence, unspecified, uncomplicated; Z98.890 Other specified postprocedural states; Z88.2 Allergy status to sulfonamides
CPT/HCPCS: 87070; 87205; 99283; 10080; 96372; J2001; J1885

== ENCOUNTER 2018-07-23 14:40 | Emergency (ER) | payer OTHER ==
[2018-07-23 15:08] VITALS: RESP 18; TEMP 98.6
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
[2018-07-23 16:46] VITALS: BP 153/78; PULSE 80
== END 2018-07-23 16:44 | disposition home or self-care (01) ==
LOC: EC 14:40
DX: L02.31 Cutaneous abscess of buttock (principal); I10 Essential (primary) hypertension; F17.200 Nicotine dependence, unspecified, uncomplicated; Z53.29 Procedure and treatment not carried out because of patient's decision for other reasons; Z79.899 Other long term (current) drug therapy; Z88.2 Allergy status to sulfonamides
CPT/HCPCS: 99283

== ENCOUNTER 2018-09-30 18:05 | Emergency (ER) | payer OTHER ==
[2018-09-30 18:10] VITALS: TEMP 98.6
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
[2018-09-30 20:27] LABS: Amorphous Sediment,Urine Rare /hpf; Appearance,Urine Cloudy (Clear); Bilirubin,Urine Negative (Negative); Blood,Urine Negative (Negative); Color,Urine Yellow; Glucose,Urine (UA) Negative (Negative); Ketones,Urine Negative (Negative); Leukocyte Esterase,Urine Negative (Negative); Nitrite,Urine Negative (Negative); Protein,Urine Trace (Negative); RBC,Urine 3 /hpf (0-5); Specific Gravity,Urine 1.019 (1.001-1.035); Squamous Epithelial Cell,Urine 1 /hpf (0-4)
[2018-09-30] MEDS ORDERED: AZITHROMYCIN 500 MG TAB PO STA (20:37)
[2018-09-30] MEDS ORDERED: cefTRIAXone 250 MG VIAL IM STA (20:37)
[2018-09-30 21:30] VITALS: BP 129/87; PULSE 86; RESP 16
[2018-10-01 14:55] LABS: C. trachomatis,PCR Negative (Neg,Equiv); Chlamydia trachomatis Source Urine
[2018-10-01 14:57] LABS: N. gonorrhoeae,PCR Negative (Neg,Equiv); Neisseria Source Urine
== END 2018-09-30 21:30 | disposition home or self-care (01) ==
LOC: EC 18:05
DX: N89.8 Other specified noninflammatory disorders of vagina (principal); F17.200 Nicotine dependence, unspecified, uncomplicated; Z88.2 Allergy status to sulfonamides
CPT/HCPCS: 81001; 81025; 87808; 87491; 87591; 87070; 87205; 99283; 96372; J0696

== ENCOUNTER 2018-11-25 18:49 | Emergency (ER) | payer OTHER ==
[2018-11-25] MEDS ORDERED: LIDOCAINE 1% INJ 10MG/ML (20 ML MDV) SQ ONE (19:00)
[2018-11-25] MEDS ORDERED: LABETALOL SYRINGE 5 MG/ML IVP STA (19:19)
[2018-11-25] MEDS ORDERED: SODIUM CHLORIDE 0.9% 1,000 ML IV STA (19:22)
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
[2018-11-25 19:40] LABS: Appearance,Urine Clear (Clear); Bilirubin,Urine Negative (Negative); Blood,Urine Negative (Negative); Color,Urine Colorless; Glucose,Urine (UA) Negative (Negative); Ketones,Urine Negative (Negative); Leukocyte Esterase,Urine Negative (Negative); Nitrite,Urine Negative (Negative); PH, Urine 6.5 (5.0-8.0); Protein,Urine Negative (Negative); Specific Gravity,Urine 1.003 (1.001-1.035); Urobilinogen,Urine <2.0 mg/dL (<2.0)
[2018-11-25 19:44] LABS: Basophils % (A) 0 %; Eosinophils # (A) 0.2 k/uL (0-0.7); Eosinophils % (A) 2 %; HCT 39.2 % (34.0-46.0); HGB 13.1 gm/dL (11.4-16.0); Lymphocytes # (A) 3.1 k/uL (1.0-4.8); Lymphocytes % (A) 37 %; MCH 28.7 pg (25.0-35.0); MCHC 33.4 g/dL (31.0-37.0); MCV 85.9 fL (80.0-100.0); Mean Platelet Volume 6.5; Monocytes # (A) 0.5 k/uL (0-1.0); Monocytes % (A) 6 %; Neutrophils # (A) 4.5 k/uL (1.3-7.7); Neutrophils % (A) 53 %; Platelet Count 314 k/uL (150-450); RBC 4.57 m/uL (3.80-5.40); RDW 13.9 % (11.5-15.5); WBC 8.4 k/uL (3.8-10.6)
--- NOTE | 2018-11-25 20:06 | XR ---
EXAMINATION TYPE: XR chest 2V DATE OF EXAM: 11/25/2018 COMPARISON: 12/23/2017 HISTORY: Chest pain TECHNIQUE: Frontal and lateral views of the chest are obtained. FINDINGS: Heart and mediastinum are normal. Lungs are clear. Diaphragm is normal. Bony thorax appear s normal. IMPRESSION: Normal chest. No change.
[2018-11-25 20:23] LABS: ALT 26 U/L (9-52); AST 19 U/L (14-36); Albumin 4.6 g/dL (3.5-5.0); Alkaline Phosphatase 108 U/L (38-126); Anion Gap 15 mmol/L; Blood Urea Nitrogen 9 mg/dL (7-17); Calcium 10.1 mg/dL (8.4-10.2); Carbon Dioxide 18 mmol/L (22-30); Chloride 109 mmol/L (98-107); Glucose 102 mg/dL (74-99); Magnesium 1.9 mg/dL (1.6-2.3); Potassium 4.1 mmol/L (3.5-5.1); Sodium 142 mmol/L (137-145); Total Bilirubin 0.8 mg/dL (0.2-1.3); Total Protein 8.8 g/dL (6.3-8.2)
[2018-11-25 20:56] LABS: Prothrombin Time 10.6 sec (9.0-12.0)
[2018-11-25 20:57] LABS: Partial Thromboplastin Time 20.8 sec (22.0-30.0)
--- NOTE | 2018-11-25 22:37 | CT ---
EXAM: CT Angiography Chest With Intravenous Contrast CLINICAL HISTORY: ITS.REASON CT Reason: Pain TECHNIQUE: Axial computed tomographic angiography images of the chest with intravenous contrast using pulmonary embolism protocol. CTDI is 14.9 mGy and DLP is 609 mGy-cm. This CT exam was performed using one or more of the following dose reduction techniques: automated exposure control, adjustment of the mA and/or kV according to patient size, and/or use of iterative reconstruction technique. MIP reconstructed images were created and reviewed. COMPARISON: No relevant prior studies available. FINDINGS: Pulmonary arteries: Limited examination due to poor contrast bolus in the main pulmonary artery and motion artifact. No evidence of a central pulmonary embolus. Aorta: No acute findings. No thoracic aortic aneurysm. Lungs: Unremarkable. No mass. No consolidation. Pleural space: Unremarkable. No significant effusion. No pneumothorax. Heart: Unremarkable. No cardiomegaly. No significant pericardial effusion. No evidence of RV dysfunction. Bones/joints: No acute fracture. No dislocation. Soft tissues: Unremarkable. Lymph nodes: Unremarkable. No enlarged lymph nodes. IMPRESSION: No evidence of pulmonary embolus within limits of this exam.
[2018-11-25 23:16] VITALS: BP 128/76; PULSE 69; RESP 18
[2018-11-26 00:02] VITALS: TEMP 97.4
== END 2018-11-25 23:53 | disposition home or self-care (01) ==
LOC: EC 18:49
DX: I10 Essential (primary) hypertension (principal); R00.2 Palpitations; R79.1 Abnormal coagulation profile; L72.9 Follicular cyst of the skin and subcutaneous tissue, unspecified; R42 Dizziness and giddiness; F17.200 Nicotine dependence, unspecified, uncomplicated; Z88.2 Allergy status to sulfonamides; Z79.1 Long term (current) use of non-steroidal anti-inflammatories (NSAID); Z79.899 Other long term (current) drug therapy; Z98.890 Other specified postprocedural states; Z82.49 Family history of ischemic heart disease and other diseases of the circulatory system; Z84.0 Family history of diseases of the skin and subcutaneous tissue; Z53.20 Procedure and treatment not carried out because of patient's decision for unspecified reasons
CPT/HCPCS: 99284; 96374; 96361; 36415; 93005; 85379; 80053; 83735; 84443; 84484; 85025; 85610; 85730; 81003; 81025; 71046; 71275; Q9967

== ENCOUNTER → 2018-11-30 | Outpatient (CLI) | payer OTHER ==
--- NOTE | 2018-11-30 09:11 | USB ---
Reason for exam: additional evaluation requested from prior study. History: Patient is nulliparous. Family history of breast cancer in paternal grandmother. Benign US breast aspiration single RT of the right breast, May 11, 2017. Taking hormonal contraceptives for 2 years beginning at age 25. Physical Findings: Nurse Summary: palpable lump, soft, moves (nurse kp). US Breast RT Right complete breast ultrasound includes all four quadrants, the retroareolar region and axilla. Finding demonstrates no cystic or solid lesion seen. Resolution of the previously seen right breast abscess. No suspicious finding. These results were verbally communicated with the patient and result sheet given to the patient on 11/30/18. ASSESSMENT: Benign, BI-RAD 2 RECOMMENDATION: Routine screening mammogram of both breasts at age 41. (sooner if clinically indicated)
== END | disposition home or self-care (01) ==
LOC: RADUSWWP 07:37
PROVIDERS: ATTEND Family Medicine
DX: R92.8 Other abnormal and inconclusive findings on diagnostic imaging of breast (principal)

== ENCOUNTER → 2018-12-04 | Outpatient (CLI) | payer OTHER ==
--- NOTE | 2018-12-04 08:30 | MM ---
Reason for exam: additional evaluation requested from prior study. Last mammogram was performed 1 year and 7 months ago. History: Patient is nulliparous. Family history of breast cancer in paternal grandmother. Benign US breast aspiration single RT of the right breast, May 11, 2017. Taking hormonal contraceptives for 10 years beginning at age 23. Physical Findings: Nurse did not find any significant physical abnormalities on exam. MG Diagnostic Mammo w CAD LARA Bilateral CC and MLO view(s) were taken. Prior study comparison: April 21, 2017, bilateral MG diagnostic mammo w CAD LARA. March 22, 2013, CAD bilateral diagnostic mammogram. The breast tissue is heterogeneously dense. This may lower the sensitivity of mammography. Finding: There are typically benign round, diffuse/scattered and grouped calcifications in both breasts. There is no discrete abnormality. These results were verbally communicated with the patient and result sheet given to the patient on 12/04/18. ASSESSMENT: Benign, BI-RAD 2 RECOMMENDATION: Routine screening mammogram of both breasts in 1 year.
== END | disposition home or self-care (01) ==
LOC: RADMAMWWP 07:28
PROVIDERS: ATTEND Family Medicine
DX: R92.8 Other abnormal and inconclusive findings on diagnostic imaging of breast (principal)
CPT/HCPCS: 77066

== ENCOUNTER → 2019-02-05 | Outpatient (CLI) | payer OTHER ==
[2019-02-05 14:30] LABS: Basophils % (A) 1 %; Eosinophils # (A) 0.2 k/uL (0-0.7); Eosinophils % (A) 3 %; HCT 41.2 % (34.0-46.0); HGB 13.1 gm/dL (11.4-16.0); Lymphocytes # (A) 2.4 k/uL (1.0-4.8); Lymphocytes % (A) 38 %; MCH 28.2 pg (25.0-35.0); MCHC 31.9 g/dL (31.0-37.0); MCV 88.4 fL (80.0-100.0); Mean Platelet Volume 6.2; Monocytes # (A) 0.4 k/uL (0-1.0); Monocytes % (A) 7 %; Neutrophils # (A) 3.1 k/uL (1.3-7.7); Neutrophils % (A) 49 %; Platelet Count 336 k/uL (150-450); RBC 4.66 m/uL (3.80-5.40); RDW 14.3 % (11.5-15.5); WBC 6.4 k/uL (3.8-10.6)
[2019-02-05 19:23] LABS: Potassium 4.6 mmol/L (3.5-5.5)
[2019-02-05 20:21] LABS: Hepatitis B Surface AB- Quant 284.8 mIU/mL; Hepatitis C IgG Antibody Non-Reactive (Non-Reactive)
== END | disposition home or self-care (01) ==
LOC: LABWHC1 13:16
PROVIDERS: ATTEND Dermatology Procedural Dermatology
DX: L73.2 Hidradenitis suppurativa (principal)
CPT/HCPCS: 36415; 82565; 84132; 84450; 84460; 85025; 86480; 86706; 86803; 87340

== ENCOUNTER 2019-06-08 17:44 | Emergency (ER) | payer OTHER ==
[2019-06-08 17:50] VITALS: BP 136/86; PULSE 85; RESP 18; TEMP 98.5
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
== END 2019-06-08 19:30 | disposition left against medical advice (07) ==
LOC: EC 17:44
DX: Z77.098 Contact with and (suspected) exposure to other hazardous, chiefly nonmedicinal, chemicals (principal); Z53.21 Procedure and treatment not carried out due to patient leaving prior to being seen by health care provider
CPT/HCPCS: 99499

== ENCOUNTER 2019-09-09 13:43 | Emergency (ER) | payer OTHER ==
[2019-09-09 14:03] VITALS: BP 129/84; PULSE 74; RESP 18; TEMP 98.5
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
== END 2019-09-09 14:59 | disposition home or self-care (01) ==
LOC: EC 13:43
DX: B00.1 Herpesviral vesicular dermatitis (principal); F17.200 Nicotine dependence, unspecified, uncomplicated; Z88.2 Allergy status to sulfonamides
CPT/HCPCS: 99283

== ENCOUNTER → 2020-03-19 | Outpatient (CLI) | payer OTHER ==
--- NOTE | 2020-03-19 12:56 | US ---
EXAMINATION TYPE: US venous doppler duplex LE LT DATE OF EXAM: 03/19/2020 12:48 PM COMPARISON: NONE CLINICAL HISTORY: I82.90 DVT LEFT. Edema SIDE PERFORMED: Left TECHNIQUE: The lower extremity deep venous system is examined utilizing real time linear array sonog víctor with graded compression, doppler sonography and color-flow sonography. VESSELS IMAGED: External Iliac Vein (EIV) Common Femoral Vein Deep Femoral Vein Greater Saphenous Vein * Femoral Vein Popliteal Vein Small Saphenous Vein * Proximal Calf Veins (* superficial vessels) Left Leg: Negative for DVT IMPRESSION: No evidence for DVT at this time.
== END | disposition home or self-care (01) ==
LOC: RADUSWWP 12:26
PROVIDERS: ATTEND Podiatrist Foot & Ankle Surgery
DX: I82.90 Acute embolism and thrombosis of unspecified vein (principal)

== ENCOUNTER → 2020-05-05 | Outpatient (CLI) | payer OTHER ==
[2020-05-05 14:31] LABS: Basophils % (A) 1 %; Eosinophils # (A) 0.2 k/uL (0-0.7); Eosinophils % (A) 3 %; HCT 40.3 % (34.0-46.0); Lymphocytes # (A) 2.5 k/uL (1.0-4.8); Lymphocytes % (A) 38 %; MCH 28.8 pg (25.0-35.0); MCHC 32.3 g/dL (31.0-37.0); MCV 88.9 fL (80.0-100.0); Mean Platelet Volume 6.7; Monocytes # (A) 0.5 k/uL (0-1.0); Monocytes % (A) 7 %; Neutrophils # (A) 3.3 k/uL (1.3-7.7); Neutrophils % (A) 49 %; Platelet Count 326 k/uL (150-450); RBC 4.54 m/uL (3.80-5.40); RDW 13.9 % (11.5-15.5); WBC 6.6 k/uL (3.8-10.6)
[2020-05-06 01:26] LABS: African American GFR (CKD) 112.3 (60.0-200.0); Non-African American GFR(CKD) 96.9 (60.0-200.0)
[2020-05-06 03:22] LABS: Hepatitis B Surface AB- Quant 241.2 mIU/mL; Hepatitis B Surface Antibody Reactive (Non-Reactive); Hepatitis B Surface Antigen Non-Reactive (Non-Reactive); Hepatitis C IgG Antibody Non-Reactive (Non-Reactive)
== END | disposition home or self-care (01) ==
LOC: LABWHC1 12:44
PROVIDERS: ATTEND Dermatology
DX: L73.2 Hidradenitis suppurativa (principal)
CPT/HCPCS: 36415; 82565; 84132; 84450; 84460; 85025; 86480; 86706; 86803; 87340

== ENCOUNTER 2020-07-31 15:17 | Emergency (ER) | payer OTHER ==
[2020-07-31 15:21] VITALS: PULSE 82; TEMP 97.8
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
[2020-07-31 16:22] VITALS: BP 137/77; RESP 16
== END 2020-07-31 16:10 | disposition home or self-care (01) ==
LOC: EC 15:17
DX: L25.9 Unspecified contact dermatitis, unspecified cause (principal); F17.200 Nicotine dependence, unspecified, uncomplicated; Z88.2 Allergy status to sulfonamides
CPT/HCPCS: 87529; 99282

== ENCOUNTER → 2020-08-14 | Outpatient (CLI) | payer OTHER | END | disposition home or self-care (01) | LOC: LABWHC1 11:25 | PROVIDERS: ATTEND Family Medicine | DX: Z20.828 Contact with and (suspected) exposure to other viral communicable diseases (principal) | CPT/HCPCS: U0003; C9803 ==

== ENCOUNTER → 2020-10-14 | Outpatient (CLI) | payer OTHER | END | disposition home or self-care (01) | LOC: LABWHC1 15:08 | PROVIDERS: ATTEND Family Medicine | DX: Z20.822 Contact with and (suspected) exposure to COVID-19 (principal) | CPT/HCPCS: U0003; C9803; U0005 ==

== ENCOUNTER → 2020-11-14 | Outpatient (CLI) | payer OTHER ==
[2020-11-14 15:57] LABS: Basophils # (A) 0.1 k/uL (0-0.2); Basophils % (A) 1 %; Eosinophils # (A) 0.3 k/uL (0-0.7); Eosinophils % (A) 4 %; HCT 39.8 % (34.0-46.0); HGB 13.1 gm/dL (11.4-16.0); Lymphocytes % (A) 44 %; MCH 27.9 pg (25.0-35.0); MCV 84.4 fL (80.0-100.0); Mean Platelet Volume 6.5; Monocytes # (A) 0.4 k/uL (0-1.0); Monocytes % (A) 6 %; Neutrophils % (A) 43 %; Platelet Count 309 k/uL (150-450); RBC 4.71 m/uL (3.80-5.40); RDW 15.2 % (11.5-15.5)
[2020-11-14 16:09] LABS: AST 19 U/L (14-36); African American GFR (CKD) >90 (>60 ml/min/1.73 sqM); Non-African American GFR(CKD) >90 (>60 ml/min/1.73 sqM)
[2020-11-14 16:22] LABS: ALT 13 U/L (4-34)
[2020-11-14 16:29] LABS: HCG,Quantitative Serum <2.4 mIU/mL
--- NOTE | 2020-11-18 07:17 | MM ---
Reason for exam: screening (asymptomatic). Last mammogram was performed 1 year and 11 months ago. History: Patient is nulliparous. Family history of breast cancer in paternal grandmother. Benign US breast aspiration single RT of the right breast, May 11, 2017. Taking hormonal contraceptives for 10 years beginning at age 23. Physical Findings: A clinical breast exam by your physician is recommended on an annual basis and results should be correlated with mammographic findings. MG 3D Screening Mammo W/Cad Bilateral CC and MLO view(s) were taken. Prior study comparison: December 04, 2018, bilateral MG diagnostic mammo w CAD LARA. April 21, 2017, bilateral MG diagnostic mammo w CAD LARA. The breast tissue is heterogeneously dense. This may lower the sensitivity of mammography. No significant changes when compared with prior studies. ASSESSMENT: Benign, BI-RAD 2 RECOMMENDATION: Routine screening mammogram of both breasts in 1 year.
== END | disposition home or self-care (01) ==
LOC: RADMAMWWP 15:25
PROVIDERS: ATTEND Obstetrics & Gynecology
DX: Z12.31 Encounter for screening mammogram for malignant neoplasm of breast (principal); L73.2 Hidradenitis suppurativa
CPT/HCPCS: 77063; 77067; 82565; 84132; 84450; 84460; 84702; 85025

== ENCOUNTER 2021-04-04 09:59 | Emergency (ER) | payer OTHER ==
[2021-04-04 10:04] VITALS: TEMP 98.2
[2021-04-04] MEDS ORDERED: SODIUM CHLORIDE 0.9% 1,000 ML IV ONE (10:34)
[2021-04-04 11:25] LABS: ALT 16 U/L (4-34); AST 23 U/L (14-36); African American GFR (CKD) >90 (>60 ml/min/1.73 sqM); Albumin 4.4 g/dL (3.5-5.0); Alkaline Phosphatase 92 U/L (38-126); Anion Gap 9 mmol/L; Blood Urea Nitrogen 7 mg/dL (7-17); Calcium 9.8 mg/dL (8.4-10.2); Carbon Dioxide 22 mmol/L (22-30); Chloride 107 mmol/L (98-107); Glucose 101 mg/dL (74-99); Non-African American GFR(CKD) >90 (>60 ml/min/1.73 sqM); Potassium 4.1 mmol/L (3.5-5.1); Sodium 138 mmol/L (137-145); Total Bilirubin 0.6 mg/dL (0.2-1.3); Total Protein 7.8 g/dL (6.3-8.2)
[2021-04-04 11:46] LABS: Appearance,Urine Cloudy (Clear); Bilirubin,Urine Negative (Negative); Blood,Urine Negative (Negative); Color,Urine Light Yellow; Glucose,Urine (UA) Negative (Negative); Ketones,Urine Negative (Negative); Leukocyte Esterase,Urine Negative (Negative); Nitrite,Urine Negative (Negative); PH, Urine 6.5 (5.0-8.0); Protein,Urine Negative (Negative); RBC,Urine <1 /hpf (0-5); Specific Gravity,Urine 1.006 (1.001-1.035); Squamous Epithelial Cell,Urine 7 /hpf (0-4); Urobilinogen,Urine <2.0 mg/dL (<2.0); WBC,Urine <1 /hpf (0-5)
[2021-04-04 12:08] LABS: HCG,Quantitative Serum 68058.3 mIU/mL
[2021-04-04 12:09] LABS: Basophils # (A) 0.1 k/uL (0-0.2); Basophils % (A) 1 %; Eosinophils # (A) 0.2 k/uL (0-0.7); Eosinophils % (A) 4 %; HGB 11.6 gm/dL (11.4-16.0); Lymphocytes # (A) 1.7 k/uL (1.0-4.8); Lymphocytes % (A) 29 %; MCH 29.5 pg (25.0-35.0); MCHC 33.2 g/dL (31.0-37.0); MCV 88.9 fL (80.0-100.0); Mean Platelet Volume 9.2; Monocytes # (A) 0.4 k/uL (0-1.0); Monocytes % (A) 7 %; Neutrophils # (A) 3.5 k/uL (1.3-7.7); Neutrophils % (A) 58 %; Platelet Count 148 k/uL (150-450); RBC 3.94 m/uL (3.80-5.40); RDW 14.4 % (11.5-15.5)
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
--- NOTE | 2021-04-04 13:30 | US ---
EXAMINATION TYPE: Transabdominal DATE OF EXAM: 04/04/2021 12:16 PM COMPARISON: NONE CLINICAL HISTORY: vaginal bleeding; 7 weeks. Spotting EXAM PERFORMED: Transvaginal (TV) and Transabdominal (TA) sonographic evaluation of the pelvis EXAM MEASUREMENTS: GESTATIONAL AGE / DATING Physician Established: Not yet established Dates by LMP: (9 weeks/0 days) EDC: 11/07/2021 Dates by First Scan: No previous this is first scan Dates by Current Scan for: (7 weeks/3 days) EDC: MATERNAL ANATOMY Uterus: 8.3 x 4.8 x6.5 cm Right Ovary: 3.7 x 1.9 x 1.2 cm Left Ovary: obscured by bowel gas not seen. Post CDS / Adnexa: No and fluid or adnexal abnormality seen Presence of free fluid: No significant fluid seen in the cul-de-sac Presence of corpus luteal cyst: No corpus luteum definitely identified Presence of perigestational fluid: .7 x .6 x.7cm and .4 x .3 x .4 cm. Hypoechoic. Gestational fluid collections noted. GESTATION / SURVEY Gestational sac: Identified CRL: 1.28 cm (7 weeks/3 days) Yolk Sac: 5mm Embryo heart rate: 157 bpm Beta HcG (if available): Not available at time of sonographic evaluation IMPRESSION: Single intrauterine uterine gestational sac, yolk sac and embryo with a heart rate of 157 bpm, estima fatemeh gestational age by provided LMP 9 weeks 0 days and by CRL 7 weeks 3 days. Clinical correlation re commended.
[2021-04-04 14:19] VITALS: BP 127/77; PULSE 84; RESP 18
== END 2021-04-04 14:19 | disposition home or self-care (01) ==
LOC: EC 09:59
DX: O20.9 Hemorrhage in early pregnancy, unspecified (principal); O99.341 Other mental disorders complicating pregnancy, first trimester; F32.9 Major depressive disorder, single episode, unspecified; O99.331 Smoking (tobacco) complicating pregnancy, first trimester; F17.200 Nicotine dependence, unspecified, uncomplicated; O99.321 Drug use complicating pregnancy, first trimester; F12.90 Cannabis use, unspecified, uncomplicated; O10.911 Unspecified pre-existing hypertension complicating pregnancy, first trimester; Z3A.01 Less than 8 weeks gestation of pregnancy
CPT/HCPCS: 36415; 76801; 80053; 81001; 84702; 85025; 86900; 86901; 96360; 96361; 99284

== ENCOUNTER 2021-09-03 07:54 | Emergency (ER) | payer OTHER ==
[2021-09-03 07:58] VITALS: BP 145/85; PULSE 91; RESP 18; TEMP 98.9
[2021-09-03 08:30] LABS: Appearance,Urine Clear (Clear); Bilirubin,Urine Negative (Negative); Blood,Urine Negative (Negative); Color,Urine Light Yellow; Glucose,Urine (UA) Negative (Negative); Ketones,Urine Negative (Negative); Leukocyte Esterase,Urine Negative (Negative); Nitrite,Urine Negative (Negative); PH, Urine 6.5 (5.0-8.0); Protein,Urine Negative (Negative); Specific Gravity,Urine 1.005 (1.001-1.035); Urobilinogen,Urine <2.0 mg/dL (<2.0)
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
[2021-09-03] MEDS ORDERED: SODIUM CHLORIDE 0.9% 50 ML IVPB ONE (08:45)
[2021-09-03] MEDS ORDERED: CASIRIVIMAB (REGN10933) (EUA) 600 MG, IMDEVIMAB (REGN10987) (EUA) 600 MG in SODIUM CHLO... IVPB ONE (09:00)
== END 2021-09-03 10:29 | disposition home or self-care (01) ==
LOC: EC 07:54
DX: O98.512 Other viral diseases complicating pregnancy, second trimester (principal); U07.1 COVID-19; O10.012 Pre-existing essential hypertension complicating pregnancy, second trimester; Z79.82 Long term (current) use of aspirin; Z79.899 Other long term (current) drug therapy; Z87.891 Personal history of nicotine dependence; Z3A.26 26 weeks gestation of pregnancy
CPT/HCPCS: 81003; 87635; 99283; Q0244

== ENCOUNTER 2021-12-09 18:59 | Emergency (ER) | payer OTHER ==
[2021-12-09 19:22] VITALS: RESP 18; TEMP 98.1
[2021-12-09 21:18] LABS: Basophils % (A) 0 %; Eosinophils # (A) 0.3 k/uL (0-0.7); Eosinophils % (A) 5 %; HCT 38.3 % (34.0-46.0); HGB 12.1 gm/dL (11.4-16.0); Lymphocytes # (A) 2.1 k/uL (1.0-4.8); Lymphocytes % (A) 37 %; MCH 27.5 pg (25.0-35.0); MCHC 31.7 g/dL (31.0-37.0); MCV 86.9 fL (80.0-100.0); Mean Platelet Volume 6.6; Monocytes # (A) 0.3 k/uL (0-1.0); Monocytes % (A) 5 %; Neutrophils # (A) 2.9 k/uL (1.3-7.7); Neutrophils % (A) 50 %; Platelet Count 384 k/uL (150-450); RBC 4.41 m/uL (3.80-5.40); RDW 14.7 % (11.5-15.5); WBC 5.8 k/uL (3.8-10.6)
[2021-12-09 21:26] LABS: ALT 17 U/L (4-34); AST 23 U/L (14-36); African American GFR (CKD) >90 (>60 ml/min/1.73 sqM); Albumin 4.6 g/dL (3.5-5.0); Alkaline Phosphatase 117 U/L (38-126); Anion Gap 9 mmol/L; Blood Urea Nitrogen 10 mg/dL (7-17); Calcium 9.9 mg/dL (8.4-10.2); Carbon Dioxide 26 mmol/L (22-30); Chloride 106 mmol/L (98-107); Glucose 95 mg/dL (74-99); Non-African American GFR(CKD) >90 (>60 ml/min/1.73 sqM); Potassium 4.1 mmol/L (3.5-5.1); Sodium 141 mmol/L (137-145); Total Protein 8.7 g/dL (6.3-8.2)
[2021-12-09] MEDS ORDERED: SODIUM CHLORIDE 0.9% 1,000 ML IV STA (21:33)
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
[2021-12-09 21:49] VITALS: BP 154/71; PULSE 77
--- NOTE | 2021-12-09 22:02 | US ---
EXAMINATION TYPE: US pelvic complete DATE OF EXAM: 12/09/2021 COMPARISON: NONE CLINICAL HISTORY: Vaginal bleeding. Patient had vaginal in October; patient is experiencing he katy vaginal bleeding for 3 days. A1 TECHNIQUE: Transabdominal (TA). Transvaginal exam not performed due to patient being post vaginal EXAM MEASUREMENTS: Uterus: 10.2 x 4.3 x 6.5 cm Endometrial Stripe: 1.1 cm 1. Uterus: Anteverted No obvious abnormality 2. Endometrium: No obvious abnormality 3. Right Ovary: Obscured by overlying bowel gas 4. Left Ovary: Obscured by overlying bowel gas 5. Bilateral Adnexa: Obscured by overlying bowel gas 6. Posterior cul-de-sac: wnl Excessive bowel gas limiting the exam, no obvious abnormalities noted today. IMPRESSION: No evidence of retained products. Endometrial stripe is fairly normal. Ovaries not seen. No pelvic ma ss. Limited exam.
[2021-12-09 22:05] LABS: INR 0.9 (<1.2); Partial Thromboplastin Time 25.8 sec (22.0-30.0); Prothrombin Time 10.2 sec (9.0-12.0)
[2021-12-09 23:29] LABS: Appearance,Urine Clear (Clear); Bilirubin,Urine Negative (Negative); Blood,Urine Large (Negative); Color,Urine Light Yellow; Glucose,Urine (UA) Negative (Negative); Ketones,Urine Negative (Negative); Leukocyte Esterase,Urine Negative (Negative); Mucus,Urine Rare /hpf; Nitrite,Urine Negative (Negative); PH, Urine 5.5 (5.0-8.0); Protein,Urine Negative (Negative); RBC,Urine 71 /hpf (0-5); Specific Gravity,Urine 1.011 (1.001-1.035); Squamous Epithelial Cell,Urine <1 /hpf (0-4); Urobilinogen,Urine <2.0 mg/dL (<2.0); WBC,Urine 1 /hpf (0-5)
== END 2021-12-10 00:01 | disposition home or self-care (01) ==
LOC: EC 18:59
DX: N93.8 Other specified abnormal uterine and vaginal bleeding (principal); I10 Essential (primary) hypertension; F32.A Depression, unspecified; Z88.2 Allergy status to sulfonamides; Z87.891 Personal history of nicotine dependence
CPT/HCPCS: 36415; 76856; 80053; 81001; 85025; 85610; 85730; 86850; 86900; 86901; 96360; 96361; 99284

== ENCOUNTER → 2022-08-28 | Outpatient (CLI) | payer OTHER ==
[2022-08-28 18:16] LABS: Basophils # (A) 0.03 X 10*3/uL (0.00-0.10); Basophils % (A) 0.6 %; Eosinophils # (A) 0.11 X 10*3/uL (0.04-0.35); Eosinophils % (A) 2.3 %; HCT 37.2 % (37.2-46.3); HGB 11.5 g/dL (12.0-15.0); Immature Grans, Automated 0 %; Lymphocytes # (A) 2.82 X 10*3/uL (0.90-5.00); Lymphocytes % (A) 58.4 %; MCH 26.5 pg (27.0-32.0); MCHC 30.9 g/dL (32.0-37.0); MCV 85.7 fL (80.0-97.0); Monocytes # (A) 0.79 X 10*3/uL (0.20-1.00); Monocytes % (A) 16.4 %; NRBC Per 100 WBC 0 /100 WBCS (0.0-0.0); Neutrophils # (A) 1.08 X 10*3/uL (1.80-7.70); Neutrophils % (A) 22.3 %; Platelet Count 305 X 10*3/uL (140-440); RBC 4.34 X 10*6/uL (4.10-5.20); RDW 14.3 % (11.5-14.5); WBC 4.83 X 10*3/uL (4.50-10.00)
[2022-08-28 18:30] LABS: African American GFR (CKD) 110.7 (60.0-200.0); Albumin 4.4 g/dL (3.8-4.9); Albumin/Globulin Ratio 1.33 (1.60-3.17); Anion Gap 11.3 mmol/L (10.00-18.00); BUN/Creat Ratio 14.75 Ratio (12.00-20.00); Blood Urea Nitrogen 11.8 mg/dL (9.0-27.0); Calcium 9.8 mg/dL (8.7-10.3); Carbon Dioxide 24.7 mmol/L (20.0-27.5); Globulin 3.3 g/dL (1.6-3.3); Non-African American GFR(CKD) 95.5 (60.0-200.0); Potassium 4.3 mmol/L (3.5-5.5); Total Bilirubin 0.4 mg/dL (0.30-1.20); Total Protein 7.7 g/dL (6.2-8.2)
== END | disposition home or self-care (01) ==
LOC: LABWHC1 08:49
PROVIDERS: ATTEND Dermatology Procedural Dermatology
DX: L73.2 Hidradenitis suppurativa (principal)
CPT/HCPCS: 36415; 80053; 85025; 86480

== ENCOUNTER → 2022-09-24 | Outpatient (CLI) | payer OTHER ==
[2022-09-24 15:37] LABS: Basophils # (A) 0.04 X 10*3/uL (0.00-0.10); Basophils % (A) 0.7 %; Eosinophils # (A) 0.14 X 10*3/uL (0.04-0.35); Eosinophils % (A) 2.6 %; HCT 36.7 % (37.2-46.3); HGB 11.7 g/dL (12.0-15.0); Immature Grans, Automated 0.2 %; Lymphocytes # (A) 2.51 X 10*3/uL (0.90-5.00); Lymphocytes % (A) 46.5 %; MCHC 31.9 g/dL (32.0-37.0); MCV 84.8 fL (80.0-97.0); Monocytes # (A) 0.55 X 10*3/uL (0.20-1.00); Monocytes % (A) 10.2 %; NRBC Per 100 WBC 0 /100 WBCS (0.0-0.0); Neutrophils # (A) 2.15 X 10*3/uL (1.80-7.70); Neutrophils % (A) 39.8 %; Platelet Count 337 X 10*3/uL (140-440); RBC 4.33 X 10*6/uL (4.10-5.20); RDW 14.1 % (11.5-14.5)
[2022-09-24 16:01] LABS: Prolactin 9.2 ng/mL (2.800-29.200)
[2022-09-24 18:09] LABS: % Iron Saturation 13.44 (12.00-45.00); Follicle Stimulating Hormone 5.9 mIU/mL; Luteinizing Hormone 6.1 mIU/mL
== END | disposition home or self-care (01) ==
LOC: LABWHC1 09:11
PROVIDERS: ATTEND Family Medicine
DX: R79.89 Other specified abnormal findings of blood chemistry (principal)
CPT/HCPCS: 36415; 82024; 82533; 82607; 83001; 83002; 83540; 83550; 84146; 84443; 85025

== ENCOUNTER 2022-10-30 19:51 | Emergency (ER) | payer OTHER ==
[2022-10-30 20:04] VITALS: BP 147/93; PULSE 92; RESP 18; TEMP 98.2
[2022-10-30] MEDS ORDERED: IBUPROFEN 400 MG TAB PO STA (20:32)
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
== END 2022-10-30 22:18 | disposition home or self-care (01) ==
LOC: EC 19:51
DX: J02.9 Acute pharyngitis, unspecified (principal); I10 Essential (primary) hypertension; F32.A Depression, unspecified; Z87.891 Personal history of nicotine dependence; Z88.2 Allergy status to sulfonamides; Z79.899 Other long term (current) drug therapy; Z20.822 Contact with and (suspected) exposure to COVID-19
CPT/HCPCS: 87636; 87651; 99283

== ENCOUNTER 2022-12-25 15:54 | Emergency (ER) | payer OTHER ==
[2022-12-25 16:11] VITALS: BP 159/90; PULSE 77; RESP 16; TEMP 98.2
[2022-12-25] MEDS ORDERED: IBUPROFEN 600 MG TAB PO STA (16:38)
[2022-12-25] MEDS ORDERED: ACETAMINOPHEN TAB 325 MG TAB PO STA (16:38)
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
== END 2022-12-25 18:09 | disposition home or self-care (01) ==
LOC: EC 15:54
DX: J06.9 Acute upper respiratory infection, unspecified (principal); I10 Essential (primary) hypertension; Z20.822 Contact with and (suspected) exposure to COVID-19; Z87.891 Personal history of nicotine dependence; Z88.2 Allergy status to sulfonamides; Z79.899 Other long term (current) drug therapy
CPT/HCPCS: 87636; 87651; 99284

== ENCOUNTER 2023-02-14 10:49 | Emergency (ER) | payer OTHER ==
[2023-02-14] MEDS ORDERED: SODIUM CHLORIDE 0.9% 1,000 ML IV STA (11:20)
[2023-02-14] MEDS ORDERED: CLINDAMYCIN 150 MG CAP PO STA (11:21)
[2023-02-14] MEDS ORDERED: CEPHALEXIN 500 MG CAP PO STA (11:21)
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
[2023-02-14 11:35] LABS: Basophils % (A) 1 %; Eosinophils # (A) 0.2 k/uL (0-0.7); Eosinophils % (A) 3 %; HCT 38.4 % (34.0-46.0); HGB 12.8 gm/dL (11.4-16.0); Lymphocytes # (A) 2.3 k/uL (1.0-4.8); Lymphocytes % (A) 39 %; MCHC 33.2 g/dL (31.0-37.0); MCV 84.3 fL (80.0-100.0); Monocytes # (A) 0.3 k/uL (0-1.0); Monocytes % (A) 5 %; Neutrophils % (A) 51 %; Platelet Count 329 k/uL (150-450); RBC 4.56 m/uL (3.80-5.40); RDW 14.3 % (11.5-15.5)
[2023-02-14 11:50] LABS: ALT 15 U/L (4-34); AST 23 U/L (14-36); African American GFR (CKD) >90 (>60 ml/min/1.73 sqM); Albumin 4.2 g/dL (3.5-5.0); Alkaline Phosphatase 98 U/L (38-126); Anion Gap 10 mmol/L; Blood Urea Nitrogen 8 mg/dL (7-17); Calcium 9.6 mg/dL (8.4-10.2); Carbon Dioxide 25 mmol/L (22-30); Chloride 106 mmol/L (98-107); Glucose 102 mg/dL (74-99); Non-African American GFR(CKD) >90 (>60 ml/min/1.73 sqM); Sodium 141 mmol/L (137-145); Total Bilirubin 0.7 mg/dL (0.2-1.3); Total Protein 7.9 g/dL (6.3-8.2)
--- NOTE | 2023-02-14 12:23 | CT ---
EXAMINATION TYPE: CT brain reji espinal DATE OF EXAM: 02/14/2023 COMPARISON: 06/26/2013 HISTORY: Fall, possible seizure CT DLP: 1612.[address] Brain: Unenhanced CT of the brain was performed. The ventricles, basal cisterns and sulci overlying the cerebral convexities demonstrate a normal appe arance. There is no evidence for intracranial hemorrhage or sulcal effacement. No mass effects are seen. If symptoms persist consider MRI. Osseous calvarium is intact. There is evidence of hyperostosis. IMPRESSION: No acute intracranial process CT Cervical Spine: Unenhanced CT of the cervical spine was performed with bone and soft tissue window settings submitted . Coronal and sagittal reconstruction is obtained. There is normal alignment and prevertebral soft tissues. I do not see evidence for fracture or sublu xation. No significant degenerative changes are present. The lung apices are clear. IMPRESSION: No evidence for acute fracture or subluxation of the cervical spine.
--- NOTE | 2023-02-14 12:25 | XR ---
EXAMINATION TYPE: XR chest 2V DATE OF EXAM: 02/14/2023 COMPARISON: 11/25/2018 HISTORY: Chest pain TECHNIQUE: Frontal and lateral views of the chest are obtained. FINDINGS: There is no focal air space opacity. No evidence for pneumothorax. No pleural effusion. The cardiac silhouette size is within normal limits. The osseous structures are grossly intact. IMPRESSION: 1. No acute cardiopulmonary process.
[2023-02-14] MEDS ORDERED: HYDROmorphone 0.5 MG/0.5 ML SYRINGE IVP STA (12:26)
--- NOTE | 2023-02-14 12:26 | XR ---
EXAMINATION TYPE: XR ankle complete LT DATE OF EXAM: 02/14/2023 COMPARISON: NONE HISTORY: Pain TECHNIQUE: 3 views of the left ankle are submitted for evaluation. FINDINGS: Tiny ossific density at the tip of the medial malleolus may reflect tiny avulsion fracture. No additional fractures seen. Soft tissue swelling noted. Ankle mortise is intact. IMPRESSION: 1. Tiny ossific density at the tip of the medial malleolus may reflect tiny avulsion fracture.
[2023-02-14 12:39] LABS: Partial Thromboplastin Time 23.7 sec (22.0-30.0); Prothrombin Time 10.3 sec (9.0-12.0)
--- NOTE | 2023-02-14 14:00 | CT ---
EXAMINATION TYPE: CT chest angio for PE DATE OF EXAM: 02/14/2023 COMPARISON: 11/25/2018 HISTORY: Syncope, Rule out PE CT DLP: 466.4 mGycm CONTRAST: CT chest with contrast and 3D reconstruction with MIP imaging is performed without and with IV Contra st, patient injected with 100 ml mL of Isovue 370. Contrast-enhanced CT of the chest was performed through the course of the pulmonary arteries with alfredo g and mediastinal window settings submitted. 3D reconstruction with MIP imaging was also performed. PULMONARY ARTERIES: The pulmonary arteries and their major tributaries are patent. I do not see ester dence for sizable filling defect to suggest pulmonary embolic process. LUNGS: The lungs are clear and free of infiltrate. No evidence for atelectasis. No pulmonary nodule or mass is detected. No pleural effusion. MEDIASTINUM: Thoracic aorta is of normal caliber,however, evaluation is limited given timing of the contrast bolus. If there is concern for thoracic aortic pathology consider APM. Correlate clinicall y . The heart is not enlarged. No evidence for mediastinal mass. No mediastinal lymph nodes greater than 1cm. HILAR STRUCTURES: No evidence for mass. No hilar lymph nodes greater than 1 cm. UPPER ABDOMEN: No significant abnormality is seen. IMPRESSION: 1. No evidence for Pulmonary embolism at this time.
[2023-02-14] MEDS ORDERED: ACET/COD 300 MG/30 MG STARTER PACK 6 TAB BTL PO STA (14:21)
[2023-02-14 14:30] VITALS: BP 129/88; PULSE 77; RESP 18; TEMP 98.1
== END 2023-02-14 15:13 | disposition home or self-care (01) ==
LOC: EC 10:49
DX: S93.402A Sprain of unspecified ligament of left ankle, initial encounter (principal); R55 Syncope and collapse; L02.91 Cutaneous abscess, unspecified; I10 Essential (primary) hypertension; F32.A Depression, unspecified; Z79.899 Other long term (current) drug therapy; Z87.891 Personal history of nicotine dependence; Z88.2 Allergy status to sulfonamides; W19.XXXA Unspecified fall, initial encounter
CPT/HCPCS: 36415; 93005; 85379; 80053; 83605; 83735; 84484; 85025; 85610; 85730; 73610; 71046; 72125; 70450; 71275; 99285; 96374; 96361; J1170; Q9967

== ENCOUNTER 2023-11-15 14:23 | Emergency (ER) | payer OTHER ==
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
[2023-11-15 15:15] LABS: Appearance,Urine Clear (Clear); Bilirubin,Urine Negative (Negative); Blood,Urine Negative (Negative); Color,Urine Yellow; Glucose,Urine (UA) Negative (Negative); Ketones,Urine Negative (Negative); Leukocyte Esterase,Urine Negative (Negative); Nitrite,Urine Negative (Negative); Protein,Urine Trace (Negative); Specific Gravity,Urine 1.028 (1.001-1.035); Urobilinogen,Urine <2.0 mg/dL (<2.0)
[2023-11-15] MEDS: HYDROCORTISONE 1% CREAM 30 GM TUBE TOPICAL ONE (15:24)
[2023-11-15] MEDS: diphenhydrAMINE 2% CREAM 28.4 GM TUBE TOPICAL ONE (15:24)
[2023-11-15] MEDS: dexAMETHasone 2 MG TAB PO STA (16:04)
[2023-11-15 16:16] VITALS: BP 134/84; PULSE 75; RESP 12; TEMP 96.5
== END 2023-11-15 16:09 | disposition home or self-care (01) ==
LOC: EC 14:23
DX: L30.9 Dermatitis, unspecified (principal); I10 Essential (primary) hypertension; F32.A Depression, unspecified; Z79.899 Other long term (current) drug therapy; Z88.2 Allergy status to sulfonamides; Z87.891 Personal history of nicotine dependence
CPT/HCPCS: 81003; 81025; 99283; J8540

== ENCOUNTER → 2023-12-14 | Outpatient (CLI) | payer OTHER ==
--- NOTE | 2023-12-14 07:42 | MM ---
Reason for Exam: Clinical finding. Last mammogram was performed 3 year(s) and 1 month(s) ago. Patient History: Menarche at age 15. First Full-Term at age 37. Late child-bearing (after 31). Patient has history of breast feeding. Hormonal Contraceptives for 10 years from age 23 until age 36. 05/11/2017, Benign Cyst Aspiration on the right side. Paternal grandmother had breast cancer. Last menstrual period: 12/13/2023 Risk Values: Amaris 5 year model risk: 0.3%. NCI Lifetime model risk: 7.6%. Tissue Density: The breasts are heterogeneously dense, which may obscure small masses. Findings: Analyzed By CAD. No new suspicious masses, calcifications or distortions. Overall Assessment: Negative, BI-RAD 1 Management: Screening Mammogram of both breasts at age 41. Results were given to the patient verbally at the time of exam. Patient should continue monthly self-breast exams. A clinical breast exam by your physician is recommended on an annual basis. This exam should not preclude additional follow-up of suspicious palpable abnormalities. Note on Amaris scores and lifetime risk: 1. A Amaris score greater than 3% is considered moderate risk. If this is the case, consider specialist referral to assess eligibility for a risk reducing agent. 2. If overall lifetime risk for the development of breast cancer is 20% or higher, the patient may qualify for future screening with alternating mammogram and breast MRI. Electronically signed and approved by: Price Tello DO
[2023-12-14 11:57] LABS: Basophils # (A) 0.03 X 10*3/uL (0.00-0.10); Basophils % (A) 0.7 %; Eosinophils # (A) 0.09 X 10*3/uL (0.04-0.35); HCT 37.8 % (37.2-46.3); HGB 12.6 g/dL (12.0-15.0); Lymphocytes # (A) 2.44 X 10*3/uL (0.90-5.00); Lymphocytes % (A) 53.5 %; MCH 28.8 pg (27.0-32.0); MCHC 33.3 g/dL (32.0-37.0); MCV 86.3 FL (80.0-97.0); Monocytes # (A) 0.48 X 10*3/uL (0.20-1.00); Monocytes % (A) 10.5 %; NRBC Per 100 WBC 0 X 10*3/uL (0.00-0.01); Neutrophils # (A) 1.51 X 10*3/uL (1.80-7.70); Neutrophils % (A) 33.1 %; Platelet Count 293 X 10*3/uL (140-440); RBC 4.38 X 10*6/uL (4.10-5.20); RDW 13.8 % (11.5-14.5); WBC 4.56 X 10*3/uL (4.50-10.00)
[2023-12-14 13:20] LABS: Testosterone <10.00 ng/dL (9.01-47.94)
[2023-12-14 13:26] LABS: Follicle Stimulating Hormone 4.2 mIU/mL; Luteinizing Hormone 3.2 mIU/mL
== END | disposition home or self-care (01) ==
LOC: RADMAMWWP 07:02
PROVIDERS: ATTEND Obstetrics & Gynecology
DX: R92.333 Mammographic heterogeneous density, bilateral breasts (principal); N64.4 Mastodynia; N92.1 Excessive and frequent menstruation with irregular cycle; R68.82 Decreased libido; Z80.3 Family history of malignant neoplasm of breast
CPT/HCPCS: 83001; 83002; 84443; 85025; 84403; 84144; 77066; 36415; G0279; 77062

== ENCOUNTER 2024-04-03 12:41 | Emergency (ER) | payer OTHER ==
[2024-04-03 12:46] VITALS: RESP 16
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
[2024-04-03] MEDS: KETOROLAC 15 MG/ML 1 ML VIAL IM STA (13:40)
[2024-04-03] MEDS: LIDOCAINE 4% PATCH TOPICAL ONE (13:42)
--- NOTE | 2024-04-03 14:10 | XR ---
EXAMINATION TYPE: XR lumbar spine 2 or 3V DATE OF EXAM: 04/03/2024 2:03 PM CLINICAL INDICATION:Female, 38 years old with history of pain; [facility] COMPARISON: None TECHNIQUE: XR lumbar spine 2 or 3V - Frontal, lateral and coned in L5-S1 lateral views of the spine. FINDINGS: No evidence of any acute osseous pathology. No evidence of loss of vertebral body height i s seen. There is normal alignment of the lumbar vertebral bodies. No significant degeneration changes throughout the spine. IMPRESSION: No acute fracture.
[2024-04-03] MEDS: ACET/COD 300 MG/30 MG STARTER PACK 6 TAB BTL PO STA (14:36)
[2024-04-03 14:41] VITALS: BP 141/86; PULSE 72; TEMP 97.8
== END 2024-04-03 14:48 | disposition home or self-care (01) ==
LOC: EC 12:41
DX: S39.012A Strain of muscle, fascia and tendon of lower back, initial encounter (principal); M54.16 Radiculopathy, lumbar region; Z87.891 Personal history of nicotine dependence; X58.XXXA Exposure to other specified factors, initial encounter
CPT/HCPCS: 72100; 99283; 96372; J1885

== ENCOUNTER 2024-04-05 16:54 | Emergency (ER) | payer OTHER ==
[2024-04-05 17:12] VITALS: BP 143/86; PULSE 63; RESP 16; TEMP 98.2
[2024-04-05] MEDS: FLUCONAZOLE 150 MG TAB PO STA (18:59)
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
== END 2024-04-05 19:36 | disposition home or self-care (01) ==
LOC: EC 16:54
DX: T19.2XXA Foreign body in vulva and vagina, initial encounter (principal); Z87.891 Personal history of nicotine dependence; Z88.2 Allergy status to sulfonamides; W44.8XXA Other foreign body entering into or through a natural orifice, initial encounter
CPT/HCPCS: 99283

== ENCOUNTER 2025-01-23 09:54 | Emergency (ER) | payer OTHER ==
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
[2025-01-23] MEDS: IBUPROFEN 800 MG TAB PO STA (11:11)
[2025-01-23 11:24] LABS: Influenza A Not Detected (Not Detectd); Influenza B Not Detected (Not Detectd); RSV Not Detected (Not Detectd)
--- NOTE | 2025-01-23 11:28 | XR ---
EXAMINATION TYPE: XR chest 2V DATE OF EXAM: 01/23/2025 11:00 AM COMPARISON: 02/14/2023 CLINICAL INDICATION: Female, 39 years old with history of cough, TECHNIQUE: Frontal and lateral views of the chest are obtained. FINDINGS: There is no focal air space opacity, pleural effusion, or pneumothorax seen. The cardiac silhouette size is within normal limits. The osseous structures are intact. IMPRESSION: No acute cardiopulmonary process. [facility], , 01/23/2025 11:26 AM
[2025-01-23 12:24] VITALS: BP 147/89; PULSE 80; RESP 18; TEMP 100.7
== END 2025-01-23 12:25 | disposition home or self-care (01) ==
LOC: EC 09:54
DX: U07.1 COVID-19 (principal); Z88.2 Allergy status to sulfonamides; Z87.891 Personal history of nicotine dependence
CPT/HCPCS: 71046; 87636; 99283

== ENCOUNTER → 2025-02-13 | Outpatient (CLI) | payer OTHER ==
--- NOTE | 2025-02-13 13:38 | XR ---
EXAMINATION TYPE: XR cervical spine 5 views comp, XR thoracic spine 3 views DATE OF EXAM: 02/13/2025 1:24 PM COMPARISON: None CLINICAL INDICATION: Female, 39 years old with history of M54.2 cervicalgia; PHH, back pain FINDINGS: Cervical spine: No craniocervical junction abnormalities or predental space widening. There is straightening of the n ormal cervical lordosis but with preserved alignment and disc interspaces. Limited odontoid view show s no gross abnormality. No significant bony neural foraminal narrowing on either side. Thoracic spine: 12 rib bearing thoracic vertebral bodies. All pedicles are visualized. Slight dextroconvex curvature lower thoracic spine. Vertebral body heights are preserved and alignment is maintained. Suggestion of mild degenerative disc disease mid thoracic spine. IMPRESSION: 1. Cervical spine: Straightening of the normal cervical lordosis could be positional or due to muscle spasm. Otherwise, no specific radiographic abnormality is seen. 2. Thoracic spine: Slight dextroconvex curvature/scoliosis along the lower thoracic spine. Mild degen erative disc disease midthoracic spine. No vertebral compression collapse or malalignment. [facility], , 02/13/2025 1:35 PM
== END | disposition home or self-care (01) ==
LOC: RADXRMAIN 12:51
PROVIDERS: ATTEND Family Medicine
DX: S29.019D Strain of muscle and tendon of unspecified wall of thorax, subsequent encounter (principal); M51.34 Other intervertebral disc degeneration, thoracic region; M54.2 Cervicalgia
CPT/HCPCS: 72050; 72070

== ENCOUNTER 2025-04-12 09:15 | Emergency (ER) | payer OTHER ==
[2025-04-12 09:21] VITALS: TEMP 98.1
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
[2025-04-12 10:36] LABS: Bilirubin,Urine Negative (Negative); Blood,Urine Negative (Negative); Color,Urine Colorless; Glucose,Urine (UA) Negative (Negative); Ketones,Urine Negative (Negative); Leukocyte Esterase,Urine Negative (Negative); Nitrite,Urine Negative (Negative); PH, Urine 6.5 (5.0-8.0); Protein,Urine Negative (Negative); Specific Gravity,Urine 1.009 (1.001-1.035); Urobilinogen,Urine <2.0 mg/dL (<2.0)
[2025-04-12 10:38] LABS: Basophils # (A) 0.03 10*3/uL (0.00-0.10); Basophils % (A) 0.7 %; Eosinophils # (A) 0.10 10*3/uL (0.04-0.35); Eosinophils % (A) 2.4 %; HCT 40.1 % (37.2-46.3); HGB 13.7 g/dL (12.0-15.0); Lymphocytes # (A) 2.35 10*3/uL (0.90-5.00); Lymphocytes % (A) 55.6 %; MCH 29.5 pg (27.0-32.0); MCHC 34.2 g/dL (32.0-37.0); MCV 86.2 fL (80.0-97.0); Monocytes # (A) 0.66 10*3/uL (0.20-1.00); Monocytes % (A) 15.6 %; Neutrophils # (A) 1.08 10*3/uL (1.80-7.70); Neutrophils % (A) 25.5 %; Platelet Count 235 10*3/uL (140-440); RBC 4.65 10*6/uL (4.10-5.20); RDW 13.7 % (11.5-14.5); WBC 4.23 10*3/uL (4.50-10.00)
[2025-04-12 10:43] VITALS: RESP 16
[2025-04-12 10:47] LABS: Potassium 4.5 mmol/L (3.5-5.1)
[2025-04-12 10:48] LABS: ALT 19 U/L (4-34); AST 24 U/L (14-36); African American GFR (CKD) >90 (>60 ml/min/1.73 sqM); Albumin 4.5 g/dL (3.5-5.0); Alkaline Phosphatase 95 U/L (38-126); Anion Gap 9 mmol/L; Blood Urea Nitrogen 10 mg/dL (7-17); Calcium 9.8 mg/dL (8.4-10.2); Carbon Dioxide 24 mmol/L (22-30); Chloride 108 mmol/L (98-107); Glucose 94 mg/dL (74-99); Non-African American GFR(CKD) >90 (>60 ml/min/1.73 sqM); Sodium 141 mmol/L (137-145); Total Protein 8.3 g/dL (6.3-8.2)
--- NOTE | 2025-04-12 12:39 | CT ---
EXAMINATION TYPE: CT abdomen pelvis w con DATE OF EXAM: 04/12/2025 11:12 AM COMPARISON: CT pelvis 08/13/2014 CLINICAL INDICATION: Female, 39 years old with history of rectal pain; TECHNIQUE: CT of the abdomen and pelvis after IV contrast. Delayed images through the kidneys and sag ittal and coronal reformats were created on a separate workstation. Contrast used:100 mL of Isovue 300 with IV Contrast, CT DLP: 1557.9 mGycm, Automated exposure control for dose reduction was used. FINDINGS: LOWER CHEST: Unremarkable ABDOMEN LIVER: Enlarged at 20.0 cm. Portal venous system is patent. No focal lesion. GALLBLADDER AND BILE DUCTS: Unremarkable. PANCREAS: Unremarkable. SPLEEN: Unremarkable. ADRENAL GLANDS: Unremarkable. KIDNEYS AND URETERS: No evidence of hydronephrosis or renal calculus. The ureters are unremarkable. PELVIS BLADDER: No evidence for wall thickening or mass given limitations of exam. REPRODUCTIVE: Uterus retroverted. Ovaries not well delineated from adjacent clustered bowel loops. Tr jo cul-de-sac free fluid likely physiologic. ABDOMEN & PELVIS STOMACH AND BOWEL: No evidence of bowel obstruction. There is some circumferential wall thickening al neva segments of the cecum and lower ascending colon as well as the left side of the colon which may b e due to incomplete distention. Scattered mild to moderate stool. Segments of a normal appendix are n oted. No obvious annular perirectal abnormality is seen. PERITONEUM/RETROPERITONEUM: No evidence of pneumoperitoneum or free fluid. VASCULATURE: No evidence of aortic aneurysm. MUSCULOSKELETAL: Transitional lumbosacral segment with some degenerative change in the lower lumbar s pine. LYMPH NODES: A few prominent mesenteric lymph nodes measuring up to 1.3 cm probably reactive/post inf lammatory. SOFT TISSUE/ABDOMINAL WALL: Unremarkable IMPRESSION: 1. Some segments of colonic wall thickening on both the right and left sides may reflect a nonspecif ic mild infectious or inflammatory enterocolitis. No obvious anal or rectal abnormality seen. 2. Trace cul-de-sac free fluid likely physiologic. 3. Incidental: Hepatomegaly at 20.0 cm. [facility], , 04/12/2025 12:37 PM
[2025-04-12 13:30] VITALS: BP 130/60; PULSE 68
== END 2025-04-12 13:30 | disposition home or self-care (01) ==
LOC: EC 09:15
DX: K52.9 Noninfective gastroenteritis and colitis, unspecified (principal); F17.200 Nicotine dependence, unspecified, uncomplicated; Z88.2 Allergy status to sulfonamides
CPT/HCPCS: 36415; 80053; 85025; 81003; 81025; 74177; 99283; Q9967